=== PATIENT | female | born 1945 | race Caucasian/White ===

== ENCOUNTER 2016-07-20 04:37 | Inpatient (IN) | payer MEDICARE, OTHER ==
[2016-07-14 17:08] LABS: HEMATOCRIT 33.8 % (36.0-48.0); HEMOGLOBIN 12.2 g/dL (12.0-16.0)
[2016-07-14 17:16] LABS: BUN (BLOOD UREA NITROGEN) 15 MG/DL (6-23); CALCIUM, SERUM 9.4 MG/DL (8.5-10.4); CHLORIDE, SERUM 90 MMOL/L (96-112); CO2 (CARBON DIOXIDE) 29 MMOL/L (24-34); CREATININE 0.82 MG/DL (0.55-1.02); GFR AFRICAN AMERICAN 83 ML/MIN (>=60); GFR NON AFRICAN AMERICAN 71 ML/MIN (>=60); GLUCOSE, SERUM 111 MG/DL (60-99); POTASSIUM, SERUM 3.6 MMOL/L (3.5-5.3); SODIUM, SERUM 127 MMOL/L (135-148)
--- NOTE | ~2016-07-20 | DS ---
Discharge Summary [facility] [address] [place]. [address] NAME: ELIZABETH ROMAN : 41 STATUS : DIS IN PAT#: [id number] AGE: 70 ADM/REG DATE : 07/20/16 MR#: [id number] REPORT SERV DATE: 07/28/16 DICTATED BY: CAYETANO LITTLE DATE: 07/27/16 REPORT STATUS : Draft TRANSCRIBED BY: VIRGIL DATE: 07/27/16 Data Collection from hospitalization DISCHARGE DIAGNOSES: 1. Cervical spondylotic myelopathy. 2. C4 through C7 degenerative disk disease with stenosis and spinal cord and nerve root compression. 3. Chronic pain. 4. Hypertension. 5. History of anemia. 6. History of memory loss. CONSULTATIONS: Xin White NP. PROCEDURES PERFORMED: Anterior cervical diskectomy and fusion C4-C5, C5-C6, C6-C7, placement of Medtronic PEEK interbody spacer, C4-C5, C5-C6, C6-C7, allograft bone matrix, anterior cervical plate from Medtronic, C4 through C7, neuromonitoring, operative microscope, 07/20/2016. PATHOLOGY: Tissue from cervical spine, benign bone and cartilage including medullary bone with normal cellular bone marrow particles and trilineage hematopoiesis. No metastatic malignancy, lymphoid, or plasma cell neoplasm. MEDICATIONS: Aspirin 81 mg restart on 07/24/2016, vitamin D3 1000 units daily restart on 07/24/2016, Colace 100 mg at bedtime, Plendil 2.5 mg every morning, folic acid 1 mg daily, Neurontin 100 mg four times a day, Zestoretic one every morning, methotrexate 12.5 mg every seven days, MS Contin 15 mg every 12 hours, MiraLAX powder one packet at bedtime as needed, Pravachol 40 mg at bedtime, trazodone 150 mg at bedtime, Zantac 150 mg twice daily, BuSpar 10 mg three times daily, Percocet 10/325 one every six hours as needed, Zanaflex 2 mg three times daily as needed for spasms. CONDITION AT DISCHARGE: Upon discharge, she did appear to be doing well and had no complaints. DISPOSITION: She had been discharged home to continue a regular diet with activity as discussed. She is to follow up with me in two weeks and is to call for the appointment on 07/24/2016. She is also to follow up with her primary care physician in seven to ten days and is to keep a blood pressure log until then. HOSPITAL COURSE: This 70-year-old female had intractable neck pain and progressive signs of cervical spondylotic myelopathy and worsening balance and dropping objects. She had failed previous attempts at conservative treatment. After progressive neurologic decline, she elected to proceed with surgery and was admitted for this and further treatment. Upon admission to the hospital, she had been taken to the operating room, where she did undergo the above procedure. She tolerated this well and was transferred to the recovery room. Postoperatively, she had been seen by Xin White for hypertensive. Postoperatively, she had noted that the patient had been on Plendil and Zestoretic at home and did state that her blood pressure had been well controlled with this. She had also been placed on hydralazine Discharge Summary [address] [address] NAME: ELIZABETH ROMAN : 41 STATUS : DIS IN PAT#: [id number] AGE: 70 ADM/REG DATE : 07/20/16 MR#: [id number] REPORT SERV DATE: 07/28/16 DICTATED BY: CAYETANO LITTLE DATE: 07/27/16 REPORT STATUS : Draft TRANSCRIBED BY: VIRGIL DATE: 07/27/16 and was begun on electrolyte protocol for her decreased magnesium and potassium. On postop day 1, she did appear to be doing well. Her O2 saturation on 2 L was at 99%. She was afebrile and her vital signs were stable. She was however noted to be very reluctant to discontinue the SOCIAL SCIENCE TEACHER. She had stated that she would like to be back on her home pain regimen. Her neck pain at that time was well controlled at 5/10. SOCIAL SCIENCE TEACHER was discontinued and she had also been evaluated by Physical Therapy. Her Riley catheter was removed as well. On postop day #2, she did continue with good pain control and was tolerating her diet. She did however state to Xin White that she had poor pain control without the SOCIAL SCIENCE TEACHER and that her pain was rated at an 8/10. She had also stated that she had generalized weakness; however, had no numbness or tingling in her upper extremities. Her Percocet was increased to every four hours. She had had two blood pressure readings of 160/103 and 142/78 and was to receive hydralazine. On postop day #3, she did remain in stable condition and appeared to be in no distress. She was continued on her current medications. Due to her stable condition, she was then discharged with the above instructions. Information collected by: Arnold Wang. I submit the above information as my discharge summary. PEGGY/VIRGIL Cayetano Little DO / [id number] CC: DO Primo Echeverria D.O.
--- NOTE | ~2016-07-20 | OP ---
Record Of Operation [facility] [address] [place]. [address] NAME: ELIZABETH ROMAN : 41 STATUS : ADM IN PAT#: [id number] AGE: 70 ADM/REG DATE : 07/20/16 MR#: [id number] REPORT SERV DATE: 07/20/16 DICTATED BY: CAYETANO LITTEL DATE: 07/20/16 REPORT STATUS : Draft TRANSCRIBED BY: MODL DATE: 07/20/16 DATE OF PROCEDURE: 07/20/2016 PREOPERATIVE DIAGNOSIS: Cervical spondylotic myelopathy, C4 through C7 degenerative disk disease with stenosis and spinal cord and nerve root compression. POSTOPERATIVE DIAGNOSIS: Cervical spondylotic myelopathy, C4 through C7 degenerative disk disease with stenosis and spinal cord and nerve root compression. PROCEDURE: 1. Anterior cervical diskectomy and fusion, C4-5, C5-6, C6-7. 2. Placement of Medtronic PEEK interbody spacer, C4-5, C5-6, C6-7. 3. Allograft bone matrix. 4. Anterior cervical plate from Medtronic, C4 through C7. 5. Neuromonitoring. 6. Operative microscope. SURGEON: Cayetano Little DO. ANESTHESIA: General. ESTIMATED BLOOD LOSS: 30 mL. COMPLICATIONS: None. INDICATIONS: The patient is a 70-year-old with intractable neck pain progressive signs of myelopathy, failed conservative treatment and after progressive neurologic decline, elected to proceed with surgical intervention. PROCEDURE IN DETAIL: I identified the patient in the holding area. Consent obtained. All questions were answered. Went to the operating room. Underwent general anesthesia with endotracheal intubation. Prepped and draped in the usual sterile fashion. Operative safety pause was performed, and then, we proceeded. An oblique incision was made over the left side of the neck. Dissection was carried out down to the anterior aspect of the spine. Longus colli elevated. [place] pin was placed in the vertebral body. Operative level verified with lateral fluoroscopic image. [place] pins were applied at C4 and C5. Distraction applied. Operative microscope was brought in. A knife was used to perform an annulotomy. Free disk material removed with pituitary. Anterior osteophytes removed with a Kerrison. Posterior osteophytes and uncinate processes taken down with a nathen bur. Foraminotomies performed with a Kerrison. Endplates were prepared with curettes, rasp, and a cutting bur. Trial spacers implanted, then Medtronic PEEK interbody spacer with allograft bone matrix was placed at C4-C5. This was repeated at C5-6 and C6-C7 with decompression of the C5, 6 and 7 nerve roots bilaterally, as well as significant spinal cord compression centrally. [place] pins were then removed. Anterior cervical plate from Medtronic was placed C4 through C7. Screws were placed, final tightened. Locking mechanisms engaged. Final AP and lateral images were obtained. Irrigation performed. Hemostasis achieved. Record Of Operation [facility] [address] [place]. [address] NAME: ELIZABETH ROMAN : 41 STATUS : ADM IN PAT#: [id number] AGE: 70 ADM/REG DATE : 07/20/16 MR#: [id number] REPORT SERV DATE: 07/20/16 DICTATED BY: CAYETANO LITTLE DATE: 07/20/16 REPORT STATUS : Draft TRANSCRIBED BY: VIRGIL DATE: 07/20/16 Subplatysmal drain placed. Layered closure performed. Sterile dressings applied. The patient awoke and extubated, taken to the recovery room in stable condition. OPERATIVE FINDINGS: C4-7 disk disease with stenosis. No sustained neuromonitoring alerts occurred. There was a right lower extremity somatosensory-evoked decrease that corrected with an increased amplitude and there were no changes at all in the motor-evoked potentials. MARIA VICTORIA/VIRGIL Cayetano Little DO / [id number] CC: DO Primo Echeverria D.O.
--- NOTE | ~2016-07-20 | PREOPHP ---
PreOp History and Physical [place] [id number] [facility] [place] [address] NAME: ELIZABETH ROMAN : 41 STATUS : ADM IN PAT#: [id number] AGE: 70 ADM/REG DATE : 07/20/16 MR#: [id number] REPORT SERV DATE: 07/20/16 DICTATED BY: CAYETANO LITTLE DATE: 07/20/16 REPORT STATUS : Draft TRANSCRIBED BY: VIRGIL DATE: 07/20/16 CHIEF COMPLAINT: Neck pain. HISTORY OF PRESENT ILLNESS: The patient is a 70-year-old female with intractable neck pain and progressive signs of cervical spondylotic myelopathy with worsening balance and dropping objects. She has failed previous attempts at conservative treatment. After progressive neurologic decline, elected to proceed with surgery. REVIEW OF SYSTEMS: She denies chest pain, shortness of breath, and bowel or bladder changes. ALLERGIES: DENIED. HOME MEDICATIONS: Diclofenac, doxycycline, felodipine, fluticasone, gabapentin, lisinopril, hydrochlorothiazide, methotrexate, Medrol Dosepak, metronidazole, morphine sulfate, nifedipine, nitrofurantoin, Percocet, phenazopyridine, pravastatin, prednisone, ranitidine, Bactrim, tizanidine, trazodone, and Zostavax. FAMILY HISTORY: Noncontributory. PAST MEDICAL HISTORY: Includes chronic pain, hypertension, anemia, and memory loss. PHYSICAL EXAMINATION: VITAL SIGNS: Height is 5 feet 3 inches. GENERAL: The patient is in no acute distress. PSYCH: Alert and oriented x3. Normal mood and affect. Gait is antalgic. VASCULAR: No extremity swelling. SPINE: Decreased cervical motion. HEART: Regular rate and rhythm. LUNGS: Clear to auscultation. ABDOMEN: Soft, nontender, and nondistended. Good bowel sounds. BREASTS AND RECTAL: Both deferred. NEUROLOGIC: The patient has no focal deficits. IMAGING: I have reviewed the MRI scan of the cervical spine. The patient does have C4 subluxation, C4-C7 disk disease and stenosis with spinal cord and nerve root compression. ASSESSMENT: Cervical disk disease and stenosis with cervical spondylotic myelopathy, failed conservative treatment with progressive neurologic deficit. PLAN: The patient presents today for surgical intervention. Consent was obtained. All questions were answered. She is ready to proceed with surgery. MARIA VICTORIA/VIRGIL PreOp History and Physical [address] [place] [address] NAME: ELIZABETH ROMAN : 41 STATUS : ADM IN PAT#: [id number] AGE: 70 ADM/REG DATE : 07/20/16 MR#: [id number] REPORT SERV DATE: 07/20/16 DICTATED BY: CAYETANO LITTLE DATE: 07/20/16 REPORT STATUS : Draft TRANSCRIBED BY: VIRGIL DATE: 07/20/16 Cayetano Little DO / [id number] CC: DO Primo Echeverria D.O.
--- NOTE | ~2016-07-20 | CN ---
Consultation Report [facility] [address] [place]. [address] NAME: ELIZABETH ROMAN : 41 STATUS : ADM IN PAT#: [id number] AGE: 70 ADM/REG DATE : 07/20/16 MR#: [id number] REPORT SERV DATE: 07/20/16 DICTATED BY: DATE: REPORT STATUS : Draft TRANSCRIBED BY: MODL DATE: 07/20/16 CONSULTATION DATE OF CONSULTATION: 07/20/2016 REASON FOR CONSULTATION: Hypertension. IDENTIFYING DATA: PCP is Dr. Lance Subramanian and pain management is Dr. Bebeto Garcia. HISTORY OF PRESENT ILLNESS: This is a 70-year-old female with intractable neck and back pain, who presented to Dr. Little's office with worsening balance and history of dropping objects. We have been consulted to see the patient for her hypertension postoperative. The patient is on Plendil and Zestoretic for this at home and states that her blood pressure is well controlled with this. The patient also has a longstanding history of chronic pain with use of pain management, spinal stenosis, arthritis, and history of hep C. The patient's history was obtained through careful interview with the patient and her , coupled with review in [employer] and [employer]. PAST MEDICAL HISTORY: Hypertension, high cholesterol, arthritis, spinal stenosis, chronic lumbar pain, hepatitis C in 1997, right breast cancer in 2005 with a lumpectomy and radiation, menopause, anxiety, depression. HOME MEDICATIONS: Aspirin 81 mg daily; vitamin D3, 1000 units daily; docusate sodium 100 mg daily; Plendil 2.5 mg daily; folic acid 1 mg daily; Neurontin 100 mg four times daily; Zestoretic 20/25 mg daily; methotrexate 12.5 mg every seven days; MS Contin 15 mg every 12 hours; Percocet 10/325 four times a day as needed for pain; MiraLax one packet at bedtime p.r.n.; pravastatin 40 mg daily; Zantac 150 mg twice daily; Zanaflex 2 mg three times daily; and trazodone 150 mg daily. ALLERGIES: THE PATIENT HAS NO KNOWN DRUG ALLERGIES. SOCIAL HISTORY: The patient lives with her spouse, walks with a walker, and does not climb stairs. The patient smoked 17 cigarettes a day until three days ago. The patient is retired. FAMILY HISTORY: Father of lung cancer, and mother had hypertension and a massive stroke. PAST SURGICAL HISTORY: T and A, cataract extraction bilaterally with intraocular lens implant, colonoscopy in 2014, cholecystectomy, breast biopsy, right lumpectomy in 2005, lumbar fusion in 2002 and 2007, right total knee arthroplasty in 2003, left total knee arthroplasty in 2002, tubal ligation in 1977, sinus cyst removal in 2009, and right shoulder surgery in 2001. Consultation Report [address] [place]. [address] NAME: ELIZABETH ROMAN : 41 STATUS : ADM IN PAT#: [id number] AGE: 70 ADM/REG DATE : 07/20/16 MR#: [id number] REPORT SERV DATE: 07/20/16 DICTATED BY: DATE: REPORT STATUS : Draft TRANSCRIBED BY: VIRGIL DATE: 07/20/16 REVIEW OF SYSTEMS: Negative other than HPI. PHYSICAL EXAMINATION: VITAL SIGNS: Blood pressure is 170/80, O2 saturation is 100% on 2 L nasal cannula, temp is 97.9, heart rate is 70, respirations are 12. GENERAL: Underweight, elderly female, resting in bed, no acute distress. NEURO: Head is atraumatic and normocephalic. The patient is alert and oriented x3. Cranial nerves 2 through 12 are grossly intact. NECK: Unable to view neck secondary to cervical collar incision and drain obvious. CHEST: No pain with palpation. LUNGS: Clear to auscultation bilaterally with normal respiratory effort. Decreased in the bases. CARDIOVASCULAR: S1 and S2 with no obvious murmurs, rubs, or gallops. Rhythm is regular. ABDOMEN: Soft and nontender with absent bowel sounds. No palpable organomegaly. Last bowel movement was 07/19/2016. EXTREMITIES: No significant edema, clubbing, or cyanosis. Pedal pulses are present and equal bilaterally. SURGICAL WOUND SITE TO NECK: The patient has a cervical collar on with a dressing dry and intact and a drain to bulb suction with serosanguineous drainage. SKIN: Skin is warm and dry. No unusual rashes or skin lesions. Normal color and turgor. PSYCH: The patient is anxious, but cooperative. LABORATORY DATA: Sodium is 125, potassium is 3.4, chloride is 89, BUN is 13, creatinine is 0.77, GFR is 89, glucose 108, calcium 10.1. Hemoglobin and hematocrit from 07/14 are 12.2 and 33.8. ASSESSMENT AND PLAN: 1. Essential hypertension. The patient is on Plendil and Zestoretic. We have added hydralazine and placed the patient on electrolyte protocol for her decreased magnesium and potassium. 2. Acute on chronic pain. The patient goes to Pain Management. The patient is on MS Contin, Neurontin, Percocet, Zanaflex, and PARKING MANAGER. We will encourage nurse to use p.o. pain medications instead of just PARKING MANAGER. 3. Tobacco abuse. The patient has smoked at least 17 cigarettes a day up until three days ago. We have ordered a Habitrol patch p.r.n. 4. Gastroesophageal reflux disease. We are discontinuing her Pepcid due to possible renal effects and ordering Protonix twice daily. 5. Anxiety and depression. The patient is on trazodone for this. We would like to take the time to thank you for this consultation. We will continue to follow the patient with you until it is time for her to be discharged. Please let us know if we can be of any further assistance. Consultation Report [address] [place]. [address] NAME: ELIZABETH ROMAN : 41 STATUS : ADM IN [facility]#: [id number] AGE: 70 ADM/REG DATE : 07/20/16 MR#: [id number] REPORT SERV DATE: 07/20/16 DICTATED BY: DATE: REPORT STATUS : Draft TRANSCRIBED BY: VIRGIL DATE: 07/20/16 SLC/VIRGIL Xin White NP / [id number] CC: Cayetano Ltitle DO
[~2016-07-20 04:37] MED LIST: ASAB PO; BUSPAR10 PO; DSS PO; FOLIC PO; MIRALAX POWDER1 PKT PO; MSCONT15 PO; MTX2.5 PO; NEUR100 PO; PERCOCET 10/3251 TAB PO; PLEND5 PO; PRAVACHOL40 MG PO; TRAZODONE150 MG PO; VITAMIN D31000 UNIT PO; ZANAFLEX2 MG PO; ZANTAC 150 PO; ZESTORETIC1 TA1 PO
[2016-07-20 06:41] LABS: BUN (BLOOD UREA NITROGEN) 13 MG/DL (6-23); CALCIUM, SERUM 10.1 MG/DL (8.5-10.4); CHLORIDE, SERUM 89 MMOL/L (96-112); CO2 (CARBON DIOXIDE) 27 MMOL/L (24-34); CREATININE 0.77 MG/DL (0.55-1.02); GFR AFRICAN AMERICAN 89 ML/MIN (>=60); GFR NON AFRICAN AMERICAN 77 ML/MIN (>=60); GLUCOSE, SERUM 108 MG/DL (60-99); POTASSIUM, SERUM 3.4 MMOL/L (3.5-5.3); SODIUM, SERUM 125 MMOL/L (135-148)
[2016-07-21 05:11] LABS: BASOPHILS 0 %; EOSINOPHILS 0.5 %; EOSINOPHILS ABSOLUTE 0.04 10/3/uL (0.0-0.53); HEMATOCRIT 32.8 % (36.0-48.0); HEMOGLOBIN 11.7 g/dL (12.0-16.0); IMMATURE GRANULOCYTES 0.2 %; IMMATURE GRANULOCYTES ABSOLUTE 0.02 10/3/uL (0.0-0.11); LYMPHOCYTES 9.7 %; LYMPHOCYTES ABSOLUTE 0.81 10/3/uL (0.67-4.30); MEAN CORPUS HGB CONC 35.7 g/dL (32.0-36.0); MEAN CORPUSCULAR HEMOGLOB 33.5 pg (26.0-34.0); MEAN PLATELET VOLUME 8.6 fL (9.2-13.0); MONOCYTES 9.9 %; MONOCYTES ABSOLUTE 0.82 10/3/uL (0.21-1.20); NEUTROPHILS 79.7 %; NEUTROPHILS ABSOLUTE 6.62 10/3/uL (2.02-8.40); PLATELET COUNT 251 10/3/uL (150-400); RBC DISTRIBUTION WIDTH 13.7 % (12.0-16.0); RED CELL COUNT 3.49 10/6/uL (4.0-5.6); WHITE BLOOD CELLS 8.3 10/3/uL (4.5-10.5)
[2016-07-21 05:17] LABS: MANUAL DIFF NO %
[2016-07-21 05:27] LABS: CALCIUM, SERUM 9.3 MG/DL (8.5-10.4); CHLORIDE, SERUM 95 MMOL/L (96-112); CO2 (CARBON DIOXIDE) 27 MMOL/L (24-34); CREATININE 0.66 MG/DL (0.55-1.02); GFR AFRICAN AMERICAN 102 ML/MIN (>=60); GFR NON AFRICAN AMERICAN 88 ML/MIN (>=60); GLUCOSE, SERUM 110 MG/DL (60-99); POTASSIUM, SERUM 3.3 MMOL/L (3.5-5.3); SODIUM, SERUM 131 MMOL/L (135-148)
[2016-07-21 05:32] LABS: BUN (BLOOD UREA NITROGEN) 8 MG/DL (6-23)
[2016-07-22 05:16] LABS: BASOPHILS 0.1 %; BASOPHILS ABSOLUTE 0.01 10/3/uL (0.0-0.16); EOSINOPHILS 1.9 %; EOSINOPHILS ABSOLUTE 0.13 10/3/uL (0.0-0.53); HEMATOCRIT 30.7 % (36.0-48.0); IMMATURE GRANULOCYTES 0.1 %; IMMATURE GRANULOCYTES ABSOLUTE 0.01 10/3/uL (0.0-0.11); LYMPHOCYTES 8.5 %; LYMPHOCYTES ABSOLUTE 0.59 10/3/uL (0.67-4.30); MANUAL DIFF NO %; MEAN CORPUS HGB CONC 35.8 g/dL (32.0-36.0); MEAN CORPUSCULAR VOLUME 94.8 fL (80-100); MEAN PLATELET VOLUME 8.3 fL (9.2-13.0); MONOCYTES 11.2 %; MONOCYTES ABSOLUTE 0.78 10/3/uL (0.21-1.20); NEUTROPHILS 78.2 %; NEUTROPHILS ABSOLUTE 5.42 10/3/uL (2.02-8.40); PLATELET COUNT 235 10/3/uL (150-400); RBC DISTRIBUTION WIDTH 13.9 % (12.0-16.0); RED CELL COUNT 3.24 10/6/uL (4.0-5.6); WHITE BLOOD CELLS 6.9 10/3/uL (4.5-10.5)
[2016-07-22 05:32] LABS: CALCIUM, SERUM 9.2 MG/DL (8.5-10.4); CHLORIDE, SERUM 93 MMOL/L (96-112); CO2 (CARBON DIOXIDE) 28 MMOL/L (24-34); CREATININE 0.58 MG/DL (0.55-1.02); GFR AFRICAN AMERICAN 107 ML/MIN (>=60); GFR NON AFRICAN AMERICAN 92 ML/MIN (>=60); GLUCOSE, SERUM 93 MG/DL (60-99); POTASSIUM, SERUM 3.8 MMOL/L (3.5-5.3); SODIUM, SERUM 132 MMOL/L (135-148)
[2016-07-22 05:33] LABS: BUN (BLOOD UREA NITROGEN) 12 MG/DL (6-23)
[2016-07-23 06:14] LABS: BASOPHILS 0.3 %; BASOPHILS ABSOLUTE 0.02 10/3/uL (0.0-0.16); EOSINOPHILS 3.3 %; EOSINOPHILS ABSOLUTE 0.21 10/3/uL (0.0-0.53); HEMATOCRIT 29.1 % (36.0-48.0); HEMOGLOBIN 10.5 g/dL (12.0-16.0); IMMATURE GRANULOCYTES 0.2 %; IMMATURE GRANULOCYTES ABSOLUTE 0.01 10/3/uL (0.0-0.11); LYMPHOCYTES 15.8 %; MEAN CORPUS HGB CONC 36.1 g/dL (32.0-36.0); MEAN CORPUSCULAR HEMOGLOB 34.3 pg (26.0-34.0); MEAN CORPUSCULAR VOLUME 95.1 fL (80-100); MEAN PLATELET VOLUME 8.4 fL (9.2-13.0); MONOCYTES 7.7 %; MONOCYTES ABSOLUTE 0.49 10/3/uL (0.21-1.20); NEUTROPHILS 72.7 %; NEUTROPHILS ABSOLUTE 4.61 10/3/uL (2.02-8.40); PLATELET COUNT 218 10/3/uL (150-400); RBC DISTRIBUTION WIDTH 13.8 % (12.0-16.0); RED CELL COUNT 3.06 10/6/uL (4.0-5.6); WHITE BLOOD CELLS 6.3 10/3/uL (4.5-10.5)
[2016-07-23 06:16] LABS: MANUAL DIFF NO %
[2016-07-23 06:28] LABS: BUN (BLOOD UREA NITROGEN) 11 MG/DL (6-23); CALCIUM, SERUM 9.2 MG/DL (8.5-10.4); CHLORIDE, SERUM 93 MMOL/L (96-112); CO2 (CARBON DIOXIDE) 27 MMOL/L (24-34); CREATININE 0.55 MG/DL (0.55-1.02); GFR AFRICAN AMERICAN 109 ML/MIN (>=60); GFR NON AFRICAN AMERICAN 94 ML/MIN (>=60); GLUCOSE, SERUM 100 MG/DL (60-99); POTASSIUM, SERUM 3.8 MMOL/L (3.5-5.3); SODIUM, SERUM 128 MMOL/L (135-148)
[2016-07-23] MEDS ORDERED: ZANAFLEX2 MG PO (13:30)
[2016-07-23] MEDS ORDERED: PERCOCET 10/3251 TAB PO (13:30)
== END 2016-07-23 14:30 | disposition home or self-care (01) | DRG 472 ==
LOC: SDC 04:37 → SDC/OF 10:26 → 3SO 11:00
PROVIDERS: Nurse Practitioner Family; Orthopaedic Surgery
PROC: 4A11X4G Monitoring of Peripheral Nervous Electrical Activity, Intraoperative, External Approach (ICD-10-PCS; 2016-07-20)
PROC: 0RG20A0 Fusion of 2 or more Cervical Vertebral Joints with Interbody Fusion Device, Anterior Approach, Anterior Column, Open Approach (ICD-10-PCS; principal; 2016-07-20 06:45)
PROC: 0RT30ZZ Resection of Cervical Vertebral Disc, Open Approach (ICD-10-PCS; 2016-07-20 06:45)
DX: M50.121 Cervical disc disorder at C4-C5 level with radiculopathy (principal); M50.021 Cervical disc disorder at C4-C5 level with myelopathy; I10 Essential (primary) hypertension; E87.1 Hypo-osmolality and hyponatremia; F17.210 Nicotine dependence, cigarettes, uncomplicated; E87.6 Hypokalemia; K21.9 Gastro-esophageal reflux disease without esophagitis; F41.9 Anxiety disorder, unspecified; F32.9 Major depressive disorder, single episode, unspecified
CPT/HCPCS: 80048; 82962; 83735; 85014; 85018; 85025; 87641; 88304; 88311; 93005; 97116-GP; 97161-GP; 97165-GO; 97530-GP; A9270-GY; C1713; G8978-CK-GP; G8979-CI-GP; G8987-CJ-GO; G8988-CJ-GO; G8989-CJ-GO; J0360; J0690; J1170; J2270; J2405; J2550; J2710; J3010; J8610